=== PATIENT | female | born 1995 | race Caucasian/White ===

== ENCOUNTER → 2020-03-24 | Outpatient (CLI) | payer OTHER, MEDICAID ==
--- NOTE | 2020-03-24 16:33 | Diagnostic Imaging Report ---
PROCEDURE: MRI lumbar spine. TECHNIQUE: Multiplanar, multisequence MRI of the lumbar spine was performed without contrast. INDICATION: Low back pain and right leg pain. COMPARISON: No prior studies are available for comparison. FINDINGS: Curvature and alignment of the lumbar spine is normal. Vertebral body heights are maintained. The marrow signal intensity is unremarkable. No marrow lesion or fracture is seen. There is normal height and signal intensity to the lumbar intervertebral discs. Conus is in a normal location and unremarkable at the L1-L2 level. T12-L1: The central canal and neural foramina are widely patent. L1-L2: The central canal and neural foramina are widely patent. L2-L3: The central canal and neural foramina are widely patent. L3-L4: The central canal and neural foramina are widely patent. L4-L5: Minimal ligamentous thickening is present. Central canal remains widely patent. Neural foramina are patent. L5-S1: The central canal and neural foramina are widely patent. Paraspinous tissues are unremarkable. IMPRESSION: Essentially unremarkable MRI of the lumbar spine. No focal disc protrusion or central canal or neuroforaminal stenosis is detected. Dictated by: Dictated on workstation # [id number]
== END ==
LOC: RAD 15:09
PROVIDERS: ATTEND Orthopaedic Surgery
DX: M54.16 Radiculopathy, lumbar region (principal); M79.604 Pain in right leg
CPT/HCPCS: 72148

== ENCOUNTER → 2022-05-16 | Outpatient (CLI) | payer OTHER, MEDICAID ==
--- NOTE | 2022-05-16 17:11 | Diagnostic Imaging Report ---
INDICATION: anatomy survey. TECHNIQUE: Multiple real-time grayscale images were obtained over the gravid uterus. COMPARISON: None. FINDINGS: The cervix measures 6.5 cm in length. Fetus is in transverse lie with head to maternal right. Placenta is posteriorly positioned and there is no previa. The amount of amniotic fluid appears visually appropriate, and the HEIDI is normal at 12.78 cm. heart rate is 149 BPM. anatomy survey is performed and the following structures are visualized and normal: Spine, stomach, four-chamber heart, right ventricular outflow tract, left ventricular outflow tract, kidneys, urinary bladder, three-vessel cord, cerebral ventricles, cerebellum, umbilical cord insertion and diaphragm. Biometrical measurements are as follows: Biparietal 4.20 cm, age 18 weeks 6 days. Head circumference 17.31 cm, age 20 weeks 0 days. Abdominal circumference 14.62 cm, age 20 weeks 0 days. Femur length 3.23 cm, age 20 weeks 1 days. Sonographic estimate age: 19 weeks 6 days. Sonographic estimated date of delivery: 10/04/2022. Estimated Weight: 322 gm (+/- 47 gm). LMP percentile: 41%. heart rate: 149 beats per minute. number: 1 of 1. IMPRESSION: 1. Single live intrauterine with normal anatomy survey. Dictated by: Dictated on workstation # [id number]
== END ==
LOC: RAD 10:12
PROVIDERS: ATTEND Nurse Practitioner Women's Health
DX: Z34.02 Encounter for supervision of normal first pregnancy, second trimester (principal)
CPT/HCPCS: 76805